=== PATIENT | female | born 1965 | race Caucasian/White ===

== ENCOUNTER 2016-10-04 20:53 | Emergency (ER) | payer BC ==
--- NOTE | 2016-10-04 21:29 | UC ---
Skin Complaint HPI - HPI Summary HPI Summary: The patient comes in today for: 1. Rash: Onset: 2-3 weeks ago. Palliative/provocative: Nothing makes it better or worse. Quality: Throbbing. Region: Right inguinal area. Severity: 3/10 Time: Constant. Associated symptoms: Previous treatment: Hydrogen peroxide and Neosporin both have been tried but they were not helpful. Last use was hydrogen peroxide today. Daughter has recently been treated for MRSA. * - History of Current Complaint Chief Complaint: [facility] Time Seen by Provider: 10/04/16 21:22 Stated Complaint: BOILS/BUMPS NEAR HIP/THIGH AREA Hx Obtained From: Patient Hx Last Menstrual Period: has IUD in place - Allergy/Home Medications Allergies/Adverse Reactions: Allergies Allergy/AdvReac Type Severity Reaction Status Date / Time No Known Allergies Allergy Verified 10/04/16 21:05 Home Medications: Home Medications Albuterol HFA INHALER* [Ventolin HFA Inhaler*] 1 - 2 puff INH Q6H PRN 10/04/16 [ History Confirmed 10/04/16] Fluticasone-Salmeterol 250-50* [Advair Diskus 250-50*] 1 puff INH BID 10/04/16 [ History Confirmed 10/04/16] Review of Systems Constitutional: Negative Skin: Rash Eyes: Negative ENT: Negative Respiratory: Negative Cardiovascular: Negative Gastrointestinal: Negative Genitourinary: Negative All Other Systems Reviewed And Are Negative: Yes PMH/Surg Hx/FS Hx/Imm Hx Previously Healthy: No Endocrine History Of: Denies: Diabetes, Thyroid Disease, Hyperthyroidism, Hypothyroidism, Dyslipidemia Cardiovascular History Of: Denies: Cardiac Disorders, Hypertension, Pacemaker/ICD, Myocardial Infarction , Congestive Heart Failure, Atrial Fibrillation, Deep Vein Thrombosis, Bleeding Disorders Respiratory History Of: Reports: Asthma Denies: COPD, Bronchitis, Pneumonia, Pulmonary Embolism GI/ History Of: Denies: Gastroesophageal Reflux, Ulcer, Gastrointestinal Bleed, Gall Bladder Disease, Kidney Stones, Diverticulitis, Renal Disease, Urosepsis Neurological History Of: Denies: TIA, CVA, Dementia, Seizures, Migraine Psychological History Of: Denies: Anxiety, Depression, Bipolar Disorder, Schizophrenia, Post Traumatic Stress Disorder Cancer History Of: Denies: Lung Cancer, Colorectal Cancer, Breast Cancer, Prostate Cancer, Cervical Cancer Other History Of: Negative For: HIV, Hepatitis B, Hepatitis C - Surgical History Surgical History: Yes Surgery Procedure, Year, and Place: still born [birth year] - Family History Known Family History: Positive: Diabetes Negative: Cardiac Disease, Hypertension - Social History Occupation: Employed Full-time Alcohol Use: Occasionally Substance Use Type: None Smoking Status (MU): Never Smoked Tobacco Physical Exam Triage Information Reviewed: Yes Appearance: Well-Appearing, No Pain Distress, Well-Nourished Vital Signs: Initial Vital Signs Temp 99.0 F 10/04/16 21:07 Pulse 75 10/04/16 21:07 Resp 16 10/04/16 21:07 BP 123/89 10/04/16 21:07 Pulse Ox 98 10/04/16 21:07 Vital Signs Reviewed: Yes Eyes: Positive: Conjunctiva Clear. Negative: Discharge ENT: Positive: Hearing grossly normal. Negative: Pharyngeal erythema, Nasal congestion, TM bulging, TM dull, TM red, Tonsillar swelling, Tonsillar exudate Dental: Negative: Gross Decay/Caries @, Dental Fracture @ Neck: Positive: Supple, Nontender, No Lymphadenopathy. Negative: Nuchal Rigidity Respiratory: Positive: Chest non-tender, Lungs clear, No respiratory distress, No accessory muscle use. Negative: Crackles, Rhonchi, Wheezing Cardiovascular: Positive: RRR, No Murmur Abdomen Description: Positive: Nontender, No Organomegaly, Soft. Negative: Distended, Guarding Musculoskeletal: Positive: Strength Intact, ROM Intact Neurological: Positive: Alert, Muscle Tone Normal Psychological: Positive: Age Appropriate Behavior, Consolable Skin: Positive: rashes - She has an erythemous and two [id number]- fluctuant masses in the right inquinal area. One has a 1-2 mm osman to it. This was ruptured and a culture taken. The masses were less in size than 1 cm.. Negative: breakdown Course/Dx - Differential Diagnoses - Skin Complaint Differential Diagnoses: Cellulitis, Impetigo - Diagnoses Provider Diagnoses: Cellulitis Discharge - Discharge Plan Condition: Stable Disposition: HOME Patient Education Materials: Cellulitis (ED) Additional Instructions: Please inspect the area daily checking for: 1. Increased redness. 2. Increased tenderness 3. Increased drainage 4. Increased swelling. Apply hot compresses (as hot as you can stand without burning yourself) for a solid 20 minutes at least 4 if not 5 times a day until healed. Be re-evaluated in 3-4 days to see how well you are doing. If you get worse, please be seen sooner.
[2016-10-04] MEDS ORDERED: Cephalexin CAP* 500 MG PO ONE ×2 (21:40→21:54)
[2016-10-04] MEDS ORDERED: Sulfamethox/Trimethoprim DS 800/160* TAB PO ONE (21:42)
[2016-10-04 21:45] VITALS: BP 123/89
== END 2016-10-04 22:02 | disposition home or self-care (01) ==
LOC: UCCORT 20:53
DX: L03.314 Cellulitis of groin (principal); J45.909 Unspecified asthma, uncomplicated
CPT/HCPCS: 87070; 87205; 99202; A9270-GY; G0463